=== PATIENT | male | born 1975 | race Caucasian/White ===

== ENCOUNTER 2019-02-04 11:59 | Emergency (ER) | payer MEDICARE, MEDICAID ==
[~2019-02-04] VITALS: Ht 172.7 cm; Wt 70.0 kg
[~2019-02-04 11:59] MED LIST: ATOR20TA66 PO; DIVA-74 PO; FENO145T36 PO; LEVE500T PO; LIDO15CR11 TOP; METF500T7 PO; [UNRECOGNIZED DRUG - OTHER]
--- NOTE | 2019-02-04 12:08 | NUR ---
Spoke to Dr. Dumas regarding pt complaint and condition. CXR and EKG ordered; labs not ordered at this time.
[2019-02-04] MEDS ORDERED: ondansetron 4mg rapidly disintigrating tab PO ONE (12:15)
[2019-02-04 12:54] LABS: BASOPHILS # (AUTO) 0.1 X10'3 (0-0.2); EOSINOPHILS # (AUTO) 0.3 X10'3 (0-0.9); EOSINOPHILS % (AUTO) 3.6 % (0-6); HEMATOCRIT 37.3 % (42.0-52.0); HEMOGLOBIN 12.5 g/dl (14.0-17.9); LYMPHOCYTES # (AUTO) 2.1 X10'3 (1.1-4.8); LYMPHOCYTES % (AUTO) 24.7 % (21-51); MEAN CORPUSCULAR HGB CONC 33.4 g/dL (33.0-36.5); MEAN CORPUSCULAR VOLUME 84.1 FL (78-98); MEAN PLATELET VOLUME 8.9 FL (7.4-10.4); MONOCYTES # (AUTO) 0.8 X10'3 (0-0.9); NEUTROPHILS # (AUTO) 5.2 X10'3 (1.8-7.7); NEUTROPHILS % (AUTO) 61.7 % (42-75); PLATELET COUNT 191 X10'3 (140-440); RED BLOOD COUNT 4.44 X10'6 (4.70-6.10); RED CELL DISTRIBUTION WIDTH 14.6 % (11.5-14.5); WHITE BLOOD COUNT 8.4 X10'3 (4.5-11.0)
[2019-02-04 13:21] LABS: ALBUMIN 3.6 G/DL (3.4-5.0); ANION GAP 10 (8-16); BILIRUBIN,TOTAL 0.4 MG/DL (0.1-1.0); BLOOD UREA NITROGEN 6 MG/DL (7-18); BUN/CREATININE RATIO 8.1 (5.4-32.0); CALCIUM 9.5 MG/DL (8.5-10.1); CHLORIDE 105 MMOL/L (99-107); CREATININE 0.74 MG/DL (0.60-1.10); GLUCOSE 90 MG/DL (70-104); POTASSIUM 3.7 MMOL/L (3.5-5.1); SODIUM 141 MMOL/L (135-145); TOTAL CARBON DIOXIDE 26.2 MMOL/L (24-32); eGFR > 90 ML/MIN
[2019-02-04 13:22] LABS: ALANINE AMINOTRANSFERASE 32 U/L (12-78); ALBUMIN/GLOBULIN RATIO 1.1 (1.1-1.5); ALKALINE PHOSPHATASE 104 IU/L (46-116); ASPARTATE AMINO TRANSFERASE 24 U/L (10-37)
[2019-02-04] MEDS ORDERED: ONDA4TAB6 PO (13:27)
[2019-02-04 13:32] LABS: VALPROATE 87 UG/ML (50-100)
[2019-02-04 14:35] VITALS: BP 133/79
== END 2019-02-04 14:39 | disposition home or self-care (01) ==
LOC: ER 11:59
DX: R07.89 Other chest pain (principal); R11.2 Nausea with vomiting, unspecified; R19.7 Diarrhea, unspecified; R05 Cough; E11.9 Type 2 diabetes mellitus without complications; Z95.0 Presence of cardiac pacemaker; Z60.2 Problems related to living alone; Z59.0 Homelessness; Z88.5 Allergy status to narcotic agent; Z91.012 Allergy to eggs; Z91.030 Bee allergy status; Z79.84 Long term (current) use of oral hypoglycemic drugs; Z79.899 Other long term (current) drug therapy
CPT/HCPCS: 36415; 71045; 80053; 80164; 85025; 93005; 99284

== ENCOUNTER 2019-05-13 16:13 | Emergency (ER) | payer MEDICARE, MEDICAID ==
[~2019-05-13] VITALS: Ht 172.7 cm; Wt 81.4 kg
[~2019-05-13 16:13] MED LIST changes: +ONDA4TAB6 PO
[2019-05-13 16:30] VITALS: BP 110/58
[2019-05-13 16:49] LABS: BASOPHILS % (AUTO) 0.5 % (0-1); EOSINOPHILS # (AUTO) 0.2 X10'3 (0-0.9); HEMATOCRIT 33.3 % (42.0-52.0); HEMOGLOBIN 11.3 g/dl (14.0-17.9); LYMPHOCYTES # (AUTO) 2.8 X10'3 (1.1-4.8); LYMPHOCYTES % (AUTO) 27.6 % (21-51); MEAN CORPUSCULAR HEMOGLOBIN 28.6 PG (27.0-31.0); MEAN CORPUSCULAR HGB CONC 33.8 g/dL (33.0-36.5); MEAN CORPUSCULAR VOLUME 84.4 FL (78-98); MEAN PLATELET VOLUME 8.7 FL (7.4-10.4); MONOCYTES # (AUTO) 0.8 X10'3 (0-0.9); MONOCYTES % (AUTO) 7.3 % (2-12); NEUTROPHILS # (AUTO) 6.4 X10'3 (1.8-7.7); NEUTROPHILS % (AUTO) 62.6 % (42-75); PLATELET COUNT 197 X10'3 (140-440); RED BLOOD COUNT 3.94 X10'6 (4.70-6.10); RED CELL DISTRIBUTION WIDTH 15.1 % (11.5-14.5); WHITE BLOOD COUNT 10.3 X10'3 (4.5-11.0)
[2019-05-13 16:54] LABS: PARTIAL THROMBOPLASTIN TIME 30 SECONDS (22-32)
[2019-05-13 16:57] LABS: ALANINE AMINOTRANSFERASE 32 U/L (12-78); ALBUMIN 3.2 G/DL (3.4-5.0); ALBUMIN/GLOBULIN RATIO 1.1 (1.1-1.5); ALKALINE PHOSPHATASE 54 IU/L (46-116); ANION GAP 7 (8-16); ASPARTATE AMINO TRANSFERASE 15 U/L (10-37); BILIRUBIN,TOTAL 0.4 MG/DL (0.1-1.0); BLOOD UREA NITROGEN 7 MG/DL (7-18); BUN/CREATININE RATIO 8.2 (5.4-32.0); CALCIUM 7.9 MG/DL (8.5-10.1); CHLORIDE 104 MMOL/L (99-107); CREATININE 0.85 MG/DL (0.60-1.10); GLUCOSE 127 MG/DL (70-104); POTASSIUM 3.4 MMOL/L (3.5-5.1); SODIUM 136 MMOL/L (135-145); TOTAL CARBON DIOXIDE 24.7 MMOL/L (24-32); eGFR > 90 ML/MIN
[2019-05-13] MEDS ORDERED: ondansetron 4mg rapidly disintigrating tab PO ONE (18:15)
[2019-05-13] MEDS ORDERED: albuterol 2.5 MG/3 ML nebule NEB ONE (18:15)
[2019-05-13] MEDS ORDERED: ONDA4TAB6 PO (18:36)
[2019-05-13] MEDS ORDERED: IBUP-1984 PO (18:36)
== END 2019-05-13 19:13 | disposition home or self-care (01) ==
LOC: ER 16:14
DX: R07.89 Other chest pain (principal); R11.2 Nausea with vomiting, unspecified; E11.9 Type 2 diabetes mellitus without complications; J45.909 Unspecified asthma, uncomplicated; Z95.0 Presence of cardiac pacemaker; Z59.0 Homelessness; Z79.899 Other long term (current) drug therapy; Z88.5 Allergy status to narcotic agent; Z91.030 Bee allergy status; Z91.012 Allergy to eggs
CPT/HCPCS: 36415; 71045; 80053; 84484; 85025; 85610; 85730; 93005; 94640; 94760; 99284; J2405

== ENCOUNTER 2019-05-21 15:08 | Inpatient (IN) | payer MEDICARE, MEDICAID ==
[~2019-05-21] VITALS: Ht 172.7 cm; Wt 72.7 kg
[~2019-05-21 15:08] MED LIST changes: +METF500T20 PO; -METF500T7 PO
[2019-05-21 15:46] LABS: ABG BASE EXCESS 0.3 mmol/L (-2.0-3.0); ABG HCO3 23.4 mmol/L (22.0-26.0); ABG OXYGEN SATURATION 91.2 % (95-98); ABG PCO2 (T) 33.3 mmHg (35.0-48.0); ABG PH (T) 7.465 (7.350-7.450); ABG PO2 (T) 58.2 mmHg (83-108); ALLEN'S TEST Positive; FCOHb 1.3 % (0.5-1.5); FLOW 4 L/min
[2019-05-21 16:11] LABS: PARTIAL THROMBOPLASTIN TIME 29 SECONDS (22-32)
[2019-05-21 16:13] LABS: BASOPHILS % (AUTO) 0.5 % (0-1); EOSINOPHILS # (AUTO) 0.3 X10'3 (0-0.9); EOSINOPHILS % (AUTO) 3.8 % (0-6); GLUCOSE 91 MG/DL (70-104); HEMATOCRIT 39.3 % (42.0-52.0); HEMOGLOBIN 13.2 g/dl (14.0-17.9); LYMPHOCYTES # (AUTO) 2.7 X10'3 (1.1-4.8); LYMPHOCYTES % (AUTO) 30.8 % (21-51); MEAN CORPUSCULAR HEMOGLOBIN 28.6 PG (27.0-31.0); MEAN CORPUSCULAR HGB CONC 33.6 g/dL (33.0-36.5); MEAN PLATELET VOLUME 8.8 FL (7.4-10.4); MONOCYTES # (AUTO) 0.6 X10'3 (0-0.9); MONOCYTES % (AUTO) 7.3 % (2-12); NEUTROPHILS # (AUTO) 5.1 X10'3 (1.8-7.7); NEUTROPHILS % (AUTO) 57.6 % (42-75); PLATELET COUNT 275 X10'3 (140-440); RED BLOOD COUNT 4.62 X10'6 (4.70-6.10); RED CELL DISTRIBUTION WIDTH 15.4 % (11.5-14.5); WHITE BLOOD COUNT 8.8 X10'3 (4.5-11.0)
[2019-05-21 16:14] LABS: ALANINE AMINOTRANSFERASE 27 U/L (12-78); ALBUMIN 4.1 G/DL (3.4-5.0); ALBUMIN/GLOBULIN RATIO 1.1 (1.1-1.5); ALKALINE PHOSPHATASE 61 IU/L (46-116); ANION GAP 9 (8-16); ASPARTATE AMINO TRANSFERASE 18 U/L (10-37); BILIRUBIN,TOTAL 0.7 MG/DL (0.1-1.0); BLOOD UREA NITROGEN 8 MG/DL (7-18); BUN/CREATININE RATIO 7.4 (5.4-32.0); CALCIUM 9.7 MG/DL (8.5-10.1); CHLORIDE 102 MMOL/L (99-107); CREATININE 1.08 MG/DL (0.60-1.10); POTASSIUM 4.4 MMOL/L (3.5-5.1); SODIUM 138 MMOL/L (135-145); TOTAL PROTEIN 7.9 G/DL (6.4-8.2); eGFR 75 ML/MIN
[2019-05-21] MEDS ORDERED: iohexol 350MG/ML 100ml bottle IV ONE (16:22)
[2019-05-21] MEDS ORDERED: ipratropium/albuterol 3ml nebule NEB ONE (17:10)
[2019-05-21] MEDS ORDERED: mag hydrox/Alum hydrox/simeth 30ml oral suspension PO PRN (17:25)
[2019-05-21] MEDS ORDERED: acetaminophen 325mg tablet PO PRN ×2 (17:25)
[2019-05-21] MEDS ORDERED: HYDROcodone/acetaminophen 10/325mg tab PO PRN (17:25)
[2019-05-21] MEDS ORDERED: morphine 2 MG/ML inj. syringe IV PRN ×2 (17:25)
[2019-05-21] MEDS ORDERED: magnesium hydroxide 30ml (MOM) UD suspension PO PRN (17:25)
[2019-05-21] MEDS ORDERED: ATOR40TA71 PO (17:46)
[2019-05-21] MEDS ORDERED: DIVA500T9 PO (17:46)
[2019-05-21] MEDS ORDERED: ALBU18HF2 INH (17:51)
[2019-05-21] MEDS ORDERED: PRAZ5CAP PO (17:51)
[2019-05-21] MEDS ORDERED: IBUP-1984 PO (17:51)
[2019-05-21] MEDS ORDERED: VARE0.5T PO (17:51)
[2019-05-21] MEDS ORDERED: PALI156D IM (17:51)
[2019-05-21] MEDS ORDERED: CARV6.253 PO (17:51)
[2019-05-21] MEDS ORDERED: VARE1TAB22 PO (17:56)
[2019-05-21] MEDS ORDERED: PRAZ1CAP5 PO (17:56)
--- NOTE | 2019-05-21 18:29 | NUR ---
CALLED TO GIVE REPORT WAS TOLD BY ROD THAT THE CRN AND RNS ARE IN REPORT AND WILL CALL BACK
--- NOTE | 2019-05-21 18:38 | NUR ---
Patient in room . I have received report from Jenny SALDANA RN and had the opportunity to ask questions and assume patient care.
[2019-05-21] MEDS ORDERED: albuterol 2.5 MG/3 ML nebule NEB PRN (19:10)
--- NOTE | 2019-05-21 19:25 | NUR ---
pt arrived to unit with all belongings, oriented to room, call light in reach, VS stable, tele placed on pt, will continue to monitor
[2019-05-21 19:30] VITALS: BP 107/57
[2019-05-21] MEDS ORDERED: non-formulary drug (Levetiracetam 1 TAB) PO SCH (20:00)
--- NOTE | 2019-05-21 20:14 | NUR ---
3HR TROP MISSED 3 hr trop was missed during the transfer process from ER, the 6hr will be drawn at scheduled time
[2019-05-21] MEDS: piperacillin/tazo 4.5gm/100ml 100 ML IV SCH (20:56)
[2019-05-21] MEDS: varenicline tartrate 0.5mg tablet PO SCH (21:02)
[2019-05-21] MEDS: divalproex sod 250mg ER (24-hour) tablet PO SCH (21:03)
[2019-05-21] MEDS: heparin, porcine 5000 units/ml vial SQ SCH (21:04)
[2019-05-21] MEDS: prazosin 1mg capsule PO SCH (21:06)
[2019-05-21] MEDS: carvedilol 6.25mg tablet PO SCH (21:06)
[2019-05-21 23:00] VITALS: BP 111/62
[2019-05-22] MEDS: HYDROcodone/acetaminophen 5mg/325mg tablet PO PRN ×3 (01:06→20:51)
[2019-05-22] MEDS: piperacillin/tazo 4.5gm/100ml 100 ML IV SCH ×3 (01:09→15:10)
[2019-05-22 03:00] VITALS: BP 110/54
[2019-05-22 03:58] LABS: ALBUMIN 3.5 G/DL (3.4-5.0); ANION GAP 9 (8-16); BLOOD UREA NITROGEN 10 MG/DL (7-18); BUN/CREATININE RATIO 10.1 (5.4-32.0); CALCIUM 9.4 MG/DL (8.5-10.1); CHLORIDE 100 MMOL/L (99-107); CREATININE 0.99 MG/DL (0.60-1.10); GLUCOSE 82 MG/DL (70-104); SODIUM 137 MMOL/L (135-145); TOTAL CARBON DIOXIDE 27.7 MMOL/L (24-32); eGFR 83 ML/MIN
[2019-05-22 04:00] LABS: BASOPHILS # (AUTO) 0.1 X10'3 (0-0.2); BASOPHILS % (AUTO) 0.9 % (0-1); EOSINOPHILS # (AUTO) 0.4 X10'3 (0-0.9); EOSINOPHILS % (AUTO) 3.6 % (0-6); HEMATOCRIT 35.4 % (42.0-52.0); HEMOGLOBIN 11.8 g/dl (14.0-17.9); LYMPHOCYTES # (AUTO) 4.4 X10'3 (1.1-4.8); LYMPHOCYTES % (AUTO) 43.1 % (21-51); MEAN CORPUSCULAR HEMOGLOBIN 28.4 PG (27.0-31.0); MEAN CORPUSCULAR HGB CONC 33.5 g/dL (33.0-36.5); MEAN PLATELET VOLUME 8.6 FL (7.4-10.4); MONOCYTES # (AUTO) 0.7 X10'3 (0-0.9); MONOCYTES % (AUTO) 6.6 % (2-12); NEUTROPHILS # (AUTO) 4.7 X10'3 (1.8-7.7); NEUTROPHILS % (AUTO) 45.8 % (42-75); PLATELET COUNT 227 X10'3 (140-440); RED BLOOD COUNT 4.17 X10'6 (4.70-6.10); RED CELL DISTRIBUTION WIDTH 15.2 % (11.5-14.5); WHITE BLOOD COUNT 10.2 X10'3 (4.5-11.0)
[2019-05-22 06:00] VITALS: BP 113/66
--- NOTE | 2019-05-22 06:18 | NUR ---
Problems reprioritized. Patient report given, questions answered & plan of care reviewed with Randy ESCALANTE.
--- NOTE | 2019-05-22 06:20 | NUR ---
Patient in room PCU 3023. I have received report from Kobe RN and had the opportunity to ask questions and assume patient care.
[2019-05-22] MEDS: carvedilol 6.25mg tablet PO SCH ×2 (07:24→20:52)
[2019-05-22] MEDS: varenicline tartrate 0.5mg tablet PO SCH ×2 (07:25→20:51)
[2019-05-22] MEDS: divalproex sod 250mg ER (24-hour) tablet PO SCH ×2 (07:25→20:57)
[2019-05-22] MEDS: heparin, porcine 5000 units/ml vial SQ SCH ×2 (07:26→20:52)
[2019-05-22] MEDS ORDERED: atorvastatin 20mg tablet PO SCH (08:00)
[2019-05-22] MEDS ORDERED: pneumococcal 23-VAL P-sac vacc 25 mcg/0.5ml vial IMVAC ONE (10:00)
[2019-05-22] MEDS: nicotine 21mg patch - 24 hr TD SCH (10:40)
[2019-05-22 11:00] VITALS: BP 111/74
[2019-05-22] MEDS ORDERED: ipratropium/albuterol 3ml nebule NEB PRN (11:45)
[2019-05-22] MEDS: ondansetron/PF 4mg/2ml inj IV PRN (14:19)
[2019-05-22 15:00] VITALS: BP 98/70
[2019-05-22 18:00] VITALS: BP 98/60
--- NOTE | 2019-05-22 18:24 | NUR ---
Patient in room U 3023. I have received report from AVA TONEY and had the opportunity to ask questions and assume patient care. Addendum: 05/22/19 at 1824 by Vijaya Parsons RN Amended: Links added.
--- NOTE | 2019-05-22 18:24 | NUR ---
Problems reprioritized. Patient report given, questions answered & plan of care reviewed with Peggy ESCALANTE.
[2019-05-22] MEDS: zolpidem 5mg tablet PO PRN (20:50)
[2019-05-22] MEDS: lactobacillus rhamnosus 10,000 MMU CELLS/CAPSULE PO SCH (20:52)
[2019-05-22] MEDS: prazosin 1mg capsule PO SCH (20:52)
[2019-05-22] MEDS: levetiracetam 250mg tablet PO SCH (21:46)
[2019-05-22 22:00] VITALS: BP 98/48
[2019-05-23] MEDS: piperacillin/tazo 4.5gm/100ml 100 ML IV SCH ×4 (00:24→23:40)
[2019-05-23 03:00] VITALS: BP 87/58
--- NOTE | 2019-05-23 06:23 | NUR ---
Patient in room PCU 3023. I have received report from AVA FOX and had the opportunity to ask questions and assume patient care.
--- NOTE | 2019-05-23 06:30 | NUR ---
Problems reprioritized. Patient report given, questions answered & plan of care reviewed with AVA Rose. Addendum: 05/23/19 at 0630 by Vijaya Parsons RN Amended: Links added.
[2019-05-23 06:36] LABS: ALBUMIN 3.3 G/DL (3.4-5.0); ANION GAP 8 (8-16); BLOOD UREA NITROGEN 6 MG/DL (7-18); BUN/CREATININE RATIO 6.1 (5.4-32.0); CALCIUM 9.4 MG/DL (8.5-10.1); CHLORIDE 102 MMOL/L (99-107); CREATININE 0.98 MG/DL (0.60-1.10); GLUCOSE 81 MG/DL (70-104); POTASSIUM 3.9 MMOL/L (3.5-5.1); SODIUM 137 MMOL/L (135-145); TOTAL CARBON DIOXIDE 27.3 MMOL/L (24-32); eGFR 83 ML/MIN
[2019-05-23 06:46] LABS: BASOPHILS # (AUTO) 0.1 X10'3 (0-0.2); BASOPHILS % (AUTO) 0.7 % (0-1); EOSINOPHILS # (AUTO) 0.4 X10'3 (0-0.9); EOSINOPHILS % (AUTO) 5.6 % (0-6); HEMATOCRIT 32.8 % (42.0-52.0); HEMOGLOBIN 11.3 g/dl (14.0-17.9); LYMPHOCYTES # (AUTO) 3.3 X10'3 (1.1-4.8); MEAN CORPUSCULAR HEMOGLOBIN 28.8 PG (27.0-31.0); MEAN CORPUSCULAR HGB CONC 34.4 g/dL (33.0-36.5); MEAN CORPUSCULAR VOLUME 83.8 FL (78-98); MEAN PLATELET VOLUME 8.8 FL (7.4-10.4); MONOCYTES # (AUTO) 0.6 X10'3 (0-0.9); MONOCYTES % (AUTO) 7.7 % (2-12); PLATELET COUNT 216 X10'3 (140-440); RED BLOOD COUNT 3.92 X10'6 (4.70-6.10); RED CELL DISTRIBUTION WIDTH 14.9 % (11.5-14.5); WHITE BLOOD COUNT 7.4 X10'3 (4.5-11.0)
[2019-05-23] MEDS: carvedilol 6.25mg tablet PO SCH ×2 (08:00→19:57)
[2019-05-23 08:02] VITALS: BP 93/50
[2019-05-23] MEDS: varenicline tartrate 0.5mg tablet PO SCH ×2 (08:07→19:57)
[2019-05-23] MEDS: lactobacillus rhamnosus 10,000 MMU CELLS/CAPSULE PO SCH ×2 (08:08→19:57)
[2019-05-23] MEDS: divalproex sod 250mg ER (24-hour) tablet PO SCH ×2 (08:09→20:45)
[2019-05-23] MEDS: levetiracetam 250mg tablet PO SCH ×2 (08:10→19:59)
[2019-05-23] MEDS: heparin, porcine 5000 units/ml vial SQ SCH ×2 (08:14→19:59)
[2019-05-23] MEDS: nicotine 21mg patch - 24 hr TD SCH (08:16)
[2019-05-23 11:00] VITALS: BP 109/55
--- NOTE | 2019-05-23 14:18 | NUR ---
PAGER ID: [phone] MESSAGE: DR. BEASLEY, 1131O/SHEKHAR, C/O ITCHING OF ABD. NO RASH. SKIN CLEAR. HE WAS CONCERNED BECAUSE HE WAS TOLD TO REPORT ITCHING R/T CTA. THANK YOU, SABRINA [id number].
[2019-05-23] MEDS: ondansetron/PF 4mg/2ml inj IV PRN ×2 (14:59→21:07)
[2019-05-23 15:00] VITALS: BP 110/73
--- NOTE | 2019-05-23 15:58 | NUR ---
PAGER ID: [phone] MESSAGE: DR. BEASLEY, 8459C/SHEKHAR, HAVING CHEST PAIN. PLEASE CALL SABRINA [phone]. TY
--- NOTE | 2019-05-23 16:00 | NUR ---
EKG WAS DONE. REPORTED SABRINA DR BEASLEY, ALSO GAVE MS 2 MG IV FOR9 PAIN LEFT BREAT, STARTED WHEN REACHING TO PUT URINAL IN PARKS. PAIN CHANGES WITH MOVEMENT/DEEP BREATHING.
--- NOTE | 2019-05-23 17:25 | NUR ---
PAGER ID: [phone] MESSAGE: DR. BEASLEY, 5491G/SHEKHAR, ACCUCHECK 58, GAVE JUICE, WILL RE CHECK. NOT ON HYPERGLYCEMIC PROTOCOL. SABRINA, [id number]. TY
--- NOTE | 2019-05-23 18:41 | NUR ---
Problems reprioritized. Patient report given, questions answered & plan of care reviewed with AVA WASHINGTON.
--- NOTE | 2019-05-23 18:53 | NUR ---
Patient in room PCU 3022R. I have received report from AVA Rose and had the opportunity to ask questions and assume patient care. Patient awake for bedside report and stable at this time. Will continue to monitor closely.
[2019-05-23 19:00] VITALS: BP 110/64
[2019-05-23] MEDS: prazosin 1mg capsule PO SCH (20:48)
[2019-05-23] MEDS: zolpidem 5mg tablet PO PRN (20:48)
[2019-05-23] MEDS ORDERED: atorvastatin 20mg tablet PO SCH (21:00)
[2019-05-23 23:00] VITALS: BP 105/52
[2019-05-24 03:20] VITALS: BP 99/36
[2019-05-24 06:00] VITALS: BP 98/57
--- NOTE | 2019-05-24 06:00 | NUR ---
Received report from stephanie. Pt in bed asleep no apparent distress
[2019-05-24 06:20] LABS: BASOPHILS # (AUTO) 0.1 X10'3 (0-0.2); EOSINOPHILS # (AUTO) 0.5 X10'3 (0-0.9); EOSINOPHILS % (AUTO) 6.9 % (0-6); HEMATOCRIT 31.7 % (42.0-52.0); HEMOGLOBIN 10.9 g/dl (14.0-17.9); LYMPHOCYTES # (AUTO) 3.3 X10'3 (1.1-4.8); LYMPHOCYTES % (AUTO) 46.1 % (21-51); MEAN CORPUSCULAR HGB CONC 34.5 g/dL (33.0-36.5); MEAN PLATELET VOLUME 8.8 FL (7.4-10.4); MONOCYTES # (AUTO) 0.5 X10'3 (0-0.9); MONOCYTES % (AUTO) 7.4 % (2-12); NEUTROPHILS # (AUTO) 2.7 X10'3 (1.8-7.7); NEUTROPHILS % (AUTO) 38.6 % (42-75); PLATELET COUNT 208 X10'3 (140-440); RED BLOOD COUNT 3.77 X10'6 (4.70-6.10); RED CELL DISTRIBUTION WIDTH 14.5 % (11.5-14.5)
[2019-05-24 06:25] LABS: ALBUMIN 3.2 G/DL (3.4-5.0); ANION GAP 9 (8-16); BLOOD UREA NITROGEN 3 MG/DL (7-18); BUN/CREATININE RATIO 2.9 (5.4-32.0); CALCIUM 9.1 MG/DL (8.5-10.1); CHLORIDE 104 MMOL/L (99-107); CREATININE 1.03 MG/DL (0.60-1.10); GLUCOSE 82 MG/DL (70-104); POTASSIUM 4.1 MMOL/L (3.5-5.1); SODIUM 138 MMOL/L (135-145); TOTAL CARBON DIOXIDE 25.2 MMOL/L (24-32); eGFR 79 ML/MIN
--- NOTE | 2019-05-24 06:30 | NUR ---
Patient in room PCU 3023. I have received report from AVA WASHINGTON and had the opportunity to ask questions and assume patient care.
--- NOTE | 2019-05-24 06:38 | NUR ---
Problems reprioritized. Patient report given, questions answered & plan of care reviewed with Milton RN and AVA Abbasi.
[2019-05-24] MEDS: heparin, porcine 5000 units/ml vial SQ SCH (08:00)
[2019-05-24] MEDS: piperacillin/tazo 4.5gm/100ml 100 ML IV SCH (08:03)
[2019-05-24] MEDS ORDERED: LEVO500T2 PO (08:56)
[2019-05-24] MEDS ORDERED: METR-159 PO (08:56)
[2019-05-24] MEDS: divalproex sod 250mg ER (24-hour) tablet PO SCH (09:10)
[2019-05-24] MEDS: lactobacillus rhamnosus 10,000 MMU CELLS/CAPSULE PO SCH (09:10)
[2019-05-24] MEDS: levetiracetam 250mg tablet PO SCH (09:11)
[2019-05-24] MEDS: nicotine 21mg patch - 24 hr TD SCH ×2 (09:12→09:16)
[2019-05-24] MEDS: carvedilol 6.25mg tablet PO SCH (09:12)
--- NOTE | 2019-05-24 09:12 | NUR ---
PAGER ID: [phone] MESSAGE: DR. BEASLEY, 8494K/SHEKHAR. THE RECOMMENDATION FROM SPEECH IS PUREED DIET WITH THIN LIQUIDS. SABRINA [id number]. TY
[2019-05-24] MEDS: varenicline tartrate 0.5mg tablet PO SCH (09:13)
--- NOTE | 2019-05-24 09:16 | NUR ---
PAGED PROCESS LABORATORY SPECIALIST:3023C IS BEING DISCHARGED ON A PUREED DIET. CAN YOU SUPPLY MORE EDUCATION FOR THIS DIET? SABRINA [phone]. TY.
--- NOTE | 2019-05-24 09:49 | NUR ---
RN page: Pt advanced to pureed/thin liquids per RESEARCH DEVELOPMENT DIRECTOR recs r/t aspiration events and being d/c today. Pt and mother seen by RD for written/verbal pureed diet ed w/ RD contact information provided. RD reinforced food consistency and cooking methods to ensure uniform pureed without chunks. Pt reports top dentures fall out and so cannot use which also effect the chewing process; RD encouraged pureed foods/thin liquids at home unless future RESEARCH DEVELOPMENT DIRECTOR re-evaluation says otherwise. Addendum: 05/24/19 at [address] Amended: Links added.
[2019-05-24 11:00] VITALS: BP 119/69
--- NOTE | 2019-05-24 11:12 | NUR ---
Pt discharged to home with caregiver. patient walked to private vehicle with all belongings. All discharge paperwork has been signed and medications delivered to bedside from [facility].
--- NOTE | 2019-05-24 11:52 | NUR ---
MEG PORTER RNimport coordinator: I have reviewed and agree with all interventions, assessments performed and documented by AVA DELEON.
[2019-06-18] MEDS ORDERED: paliperidone palmitate 156 mg/ml inj.**IM only IM SCH (08:00)
== END 2019-05-24 11:09 | disposition home or self-care (01) | DRG 177 ==
LOC: ER 15:09 → PCU 3S 19:29
PROVIDERS: ADMIT Internal Medicine; ATTEND Internal Medicine
PROC: 3E0234Z Introduction of Serum, Toxoid and Vaccine into Muscle, Percutaneous Approach (ICD-10-PCS; principal; 2019-05-22)
DX: J69.0 Pneumonitis due to inhalation of food and vomit (principal); J96.01 Acute respiratory failure with hypoxia; E11.9 Type 2 diabetes mellitus without complications; E78.5 Hyperlipidemia, unspecified; F17.210 Nicotine dependence, cigarettes, uncomplicated; F43.10 Post-traumatic stress disorder, unspecified; I50.9 Heart failure, unspecified; F12.90 Cannabis use, unspecified, uncomplicated; F31.9 Bipolar disorder, unspecified; Z60.2 Problems related to living alone; I49.5 Sick sinus syndrome; G40.909 Epilepsy, unspecified, not intractable, without status epilepticus; J44.9 Chronic obstructive pulmonary disease, unspecified; Z79.899 Other long term (current) drug therapy; Z95.0 Presence of cardiac pacemaker; Z59.0 Homelessness; Z23 Encounter for immunization; Z88.5 Allergy status to narcotic agent; Z91.030 Bee allergy status; Z91.012 Allergy to eggs; Z83.3 Family history of diabetes mellitus; Z90.49 Acquired absence of other specified parts of digestive tract
CPT/HCPCS: 36415; 36600; 71045; 71275; 74230; 80048; 80053; 82803; 82948; 83880; 84484; 85018; 85025; 85610; 85730; 90732; 92508; 93005; 94640; 94760; 99285; G0378; J1644; J2270; J2405; J2543; Q9967

== ENCOUNTER 2019-08-09 14:09 | Emergency (ER) | payer MEDICARE, MEDICAID ==
[~2019-08-09] VITALS: Ht 172.7 cm; Wt 80.0 kg
[~2019-08-09 14:09] MED LIST changes: +ALBU18HF2 INH; -ATOR20TA66 PO; +ATOR40TA71 PO; +CARV6.253 PO; -DIVA-74 PO; +DIVA500T9 PO; -FENO145T36 PO; +IBUP-1984 PO; -LIDO15CR11 TOP; -METF500T20 PO; -ONDA4TAB6 PO; +PALI156D IM; +PRAZ1CAP5 PO; +VARE1TAB22 PO; -[UNRECOGNIZED DRUG - OTHER]
[2019-08-09] MEDS ORDERED: dexamethasone sod phosphate 10mg/ml inj PO STA (16:19)
[2019-08-09] MEDS ORDERED: albuterol 2.5 MG/3 ML nebule NEB ONE (16:20)
[2019-08-09] MEDS ORDERED: AZIT250T83 PO (16:42)
[2019-08-09] MEDS ORDERED: PRED20TA PO (16:42)
[2019-08-09] MEDS ORDERED: BENZ-16 PO (16:42)
[2019-08-09 17:32] VITALS: BP 117/76
== END 2019-08-09 17:34 | disposition home or self-care (01) ==
LOC: ER 14:10
DX: J44.1 Chronic obstructive pulmonary disease with (acute) exacerbation (principal); E11.9 Type 2 diabetes mellitus without complications; F31.9 Bipolar disorder, unspecified; F12.90 Cannabis use, unspecified, uncomplicated; Z59.0 Homelessness; Z95.0 Presence of cardiac pacemaker; Z88.5 Allergy status to narcotic agent; Z91.012 Allergy to eggs; Z79.2 Long term (current) use of antibiotics; Z79.899 Other long term (current) drug therapy
CPT/HCPCS: 71045; 93005; 94640; 94760; 99283; J1100